=== PATIENT | female | born 1960 | race Caucasian/White ===

== ENCOUNTER 2017-02-02 14:25 | Outpatient (CLI) | payer BC ==
--- NOTE | 2017-02-02 17:57 | Ultrasound Report ---
ULTRASOUND POSTERIOR CHEST: 02/02/2017 CLINICAL INDICATION: Palpable abnormalities. TECHNIQUE: Real-time scanning was performed with clearance representative static images obtained. Ultrasound of the region of palpable abnormalities identified by the patient was performed. There ar e two sebaceous cysts present, the more medial measuring 1.6 x 1.3 x 0.9, and the more lateral measur ing 1.4 x 1.4 x 1.3 cm. No sonographically suspicious findings are identified. IMPRESSION: TWO SMALL SEBACEOUS CYSTS IN THE REGION OF PALPABLE ABNORMALITY IDENTIFIED BY THE JEREMIAS Pepper JOB #: [id number] EXT JOB #:[id number]
== END 2017-02-02 14:26 | disposition home or self-care (01) ==
LOC: DI 14:25
PROVIDERS: ATTEND Physician Assistant Medical
DX: L72.3 Sebaceous cyst (principal)
CPT/HCPCS: 76604

== ENCOUNTER 2017-02-08 16:50 | Outpatient (CLI) | payer BC | END 2017-02-08 16:51 | disposition home or self-care (01) | LOC: LAB.R 16:50 | PROVIDERS: ATTEND Family Medicine | DX: L02.91 Cutaneous abscess, unspecified (principal) | CPT/HCPCS: 87070; 87205 ==

== ENCOUNTER 2017-08-13 08:00 | Outpatient (CLI) | payer BC ==
[2017-08-13 14:09] LABS: BASOPHILS # (AUTO) 0.1 10^3/uL (0.0-0.1); BASOPHILS % (AUTO) 0.9 %; EOSINOPHILS # (AUTO) 0.3 10^3/uL (0.0-0.7); EOSINOPHILS % (AUTO) 2.3 %; HGB - HEMOGLOBIN 15.3 g/dL (12.0-16.0); LYMPHOCYTES # (AUTO) 2.9 10^3/uL (1.5-3.5); LYMPHOCYTES % (AUTO) 24.4 %; MEAN CORPUSCULAR HEMOGLOBIN 29.4 pg (27.0-31.0); MEAN CORPUSCULAR HGB CONC 33.9 g/dL (32.0-36.0); MEAN CORPUSCULAR VOLUME 86.7 fL (81.0-99.0); MEAN PLATELET VOLUME 8.6 fL (7.9-10.8); MONOCYTES # (AUTO) 0.8 10^3/uL (0.0-1.0); MONOCYTES % (AUTO) 6.7 %; NEUTROPHILS # (AUTO) 7.9 10^3/uL (1.5-6.6); NEUTROPHILS % (AUTO) 65.7 %; PLT - PLATELET COUNT 245 10^3/uL (130-450); RED BLOOD COUNT 5.22 10^6/uL (4.20-5.40); RED CELL DISTRIBUTION WIDTH 13.8 % (12.0-15.0)
[2017-08-13 14:11] LABS: ALBUMIN 4.4 g/dL (3.2-5.5); ALBUMIN/GLOBULIN RATIO 1.3 (1.0-2.2); ALKALINE PHOSPHATASE 75 IU/L (42-121); ALT ALANINE AMINOTRANSFERASE 22 IU/L (10-60); AST ASPARTATE AMINOTRANSFERASE 21 IU/L (10-42); BILIRUBIN,TOTAL 0.4 mg/dL (0.2-1.0); BUN - BLOOD UREA NITROGEN 16 mg/dL (6-20); CALCIUM 9.1 mg/dL (8.5-10.3); CARBON DIOXIDE - CO2 24 mmol/L (21-32); CHLORIDE 102 mmol/L (101-111); CHOL/HDL RATIO 5.2 (<4.4); CHOLESTEROL 186 mg/dL; CREATININE 0.7 mg/dL (0.4-1.0); GFR - MDRD 87 (>89); GLUCOSE 100 mg/dL (70-100); HDL CHOLESTEROL 36 mg/dL; LDL CHOLESTEROL,CALCULATED 120 mg/dL; LDL/HDL RATIO 3.3 (<4.4); SODIUM 135 mmol/L (135-145); TOTAL PROTEIN 7.7 g/dL (6.7-8.2); VLDL CHOLESTEROL 30 mg/dL
[2017-08-13 14:36] LABS: HB2 TOTAL 16.8 g/dL; HEMOGLOBIN A1C 0.81 g/dL; HEMOGLOBIN A1C % 6.6 % (4.6-6.2)
== END 2017-08-13 08:01 | disposition home or self-care (01) ==
LOC: LAB.WCP 08:00
PROVIDERS: ATTEND Family Medicine
DX: E78.5 Hyperlipidemia, unspecified (principal); E03.9 Hypothyroidism, unspecified; R73.9 Hyperglycemia, unspecified; Z79.899 Other long term (current) drug therapy
CPT/HCPCS: 36415; 80053; 80061; 83036; 83721; 84443; 85025

== ENCOUNTER 2017-10-12 06:09 | Day surgery (SDC) | payer BC ==
[2017-10-12] MEDS ORDERED: LACTATED RINGERS 1,000 ML IV ONE (06:50)
[2017-10-12] MEDS ORDERED: fentaNYL 250 MCG/5 ML VIAL IVP ONE (07:38)
[2017-10-12] MEDS ORDERED: MIDAZOLAM 2 MG/2 ML VIAL IVP ONE (07:38)
[2017-10-12 09:01] VITALS: BP 105/62
== END 2017-10-12 06:10 | disposition home or self-care (01) ==
LOC: SDS 06:09
PROVIDERS: ATTEND Surgery
PROC: 0DBH8ZX Excision of Cecum, Via Natural or Artificial Opening Endoscopic, Diagnostic (ICD-10-PCS; principal; 2017-10-12 07:30)
DX: Z12.11 Encounter for screening for malignant neoplasm of colon (principal); K57.30 Diverticulosis of large intestine without perforation or abscess without bleeding; K64.8 Other hemorrhoids; K63.5 Polyp of colon; E11.9 Type 2 diabetes mellitus without complications; I10 Essential (primary) hypertension; J44.9 Chronic obstructive pulmonary disease, unspecified; F17.210 Nicotine dependence, cigarettes, uncomplicated; Z79.82 Long term (current) use of aspirin; Z79.84 Long term (current) use of oral hypoglycemic drugs
CPT/HCPCS: 45380; J7120; 88305

== ENCOUNTER 2017-11-29 10:10 | Outpatient (CLI) | payer BC ==
[2017-11-29 12:24] LABS: BASOPHILS # (AUTO) 0.1 10^3/uL (0.0-0.1); BASOPHILS % (AUTO) 0.4 %; EOSINOPHILS # (AUTO) 0.2 10^3/uL (0.0-0.7); EOSINOPHILS % (AUTO) 1.9 %; HGB - HEMOGLOBIN 14.9 g/dL (12.0-16.0); LYMPHOCYTES # (AUTO) 2.9 10^3/uL (1.5-3.5); LYMPHOCYTES % (AUTO) 23.2 %; MEAN CORPUSCULAR HEMOGLOBIN 29.8 pg (27.0-31.0); MEAN CORPUSCULAR HGB CONC 33.6 g/dL (32.0-36.0); MEAN CORPUSCULAR VOLUME 88.8 fL (81.0-99.0); MEAN PLATELET VOLUME 8.7 fL (7.9-10.8); MONOCYTES # (AUTO) 0.7 10^3/uL (0.0-1.0); MONOCYTES % (AUTO) 5.8 %; NEUTROPHILS # (AUTO) 8.5 10^3/uL (1.5-6.6); NEUTROPHILS % (AUTO) 68.7 %; PLT - PLATELET COUNT 269 10^3/uL (130-450); RED BLOOD COUNT 5.01 10^6/uL (4.20-5.40); WHITE BLOOD COUNT 12.4 x10^3/uL (4.8-10.8)
[2017-11-29 12:36] LABS: ALBUMIN/GLOBULIN RATIO 1.1 (1.0-2.2); ALKALINE PHOSPHATASE 69 IU/L (42-121); ALT ALANINE AMINOTRANSFERASE 21 IU/L (10-60); AST ASPARTATE AMINOTRANSFERASE 21 IU/L (10-42); BILIRUBIN,TOTAL 0.5 mg/dL (0.2-1.0); BUN - BLOOD UREA NITROGEN 18 mg/dL (6-20); CALCIUM 9.3 mg/dL (8.5-10.3); CARBON DIOXIDE - CO2 23 mmol/L (21-32); CHLORIDE 103 mmol/L (101-111); CHOL/HDL RATIO 4.2 (<4.4); CHOLESTEROL 193 mg/dL; CREATININE 0.8 mg/dL (0.4-1.0); GFR - MDRD 74 (>89); GLUCOSE 90 mg/dL (70-100); HDL CHOLESTEROL 46 mg/dL; LDL CHOLESTEROL,CALCULATED 105 mg/dL; LDL/HDL RATIO 2.3 (<4.4); SODIUM 137 mmol/L (135-145); TOTAL PROTEIN 7.7 g/dL (6.7-8.2); VLDL CHOLESTEROL 42 mg/dL
[2017-11-29 13:05] LABS: HB2 TOTAL 16.9 g/dL; HEMOGLOBIN A1C 0.64 g/dL; HEMOGLOBIN A1C % 5.6 % (4.6-6.2)
== END 2017-11-29 10:11 | disposition home or self-care (01) ==
LOC: LAB.WCP 10:10
PROVIDERS: ATTEND Family Medicine
DX: E11.9 Type 2 diabetes mellitus without complications (principal); E78.5 Hyperlipidemia, unspecified; R89.9 Unspecified abnormal finding in specimens from other organs, systems and tissues
CPT/HCPCS: 36415; 80053; 80061; 82043; 83036; 83721; 85025

== ENCOUNTER 2018-08-08 10:58 | Outpatient (CLI) | payer BC, OTHER ==
[2018-08-08 19:09] LABS: BASOPHILS # (AUTO) 0.1 10^3/uL (0.0-0.1); BASOPHILS % (AUTO) 0.7 %; EOSINOPHILS # (AUTO) 0.2 10^3/uL (0.0-0.7); EOSINOPHILS % (AUTO) 2.4 %; LYMPHOCYTES # (AUTO) 2.2 10^3/uL (1.5-3.5); LYMPHOCYTES % (AUTO) 23.4 %; MEAN CORPUSCULAR HEMOGLOBIN 29.5 pg (27.0-31.0); MEAN CORPUSCULAR VOLUME 89.5 fL (81.0-99.0); MEAN PLATELET VOLUME 8.4 fL (7.9-10.8); MONOCYTES # (AUTO) 0.7 10^3/uL (0.0-1.0); MONOCYTES % (AUTO) 6.9 %; NEUTROPHILS # (AUTO) 6.3 10^3/uL (1.5-6.6); NEUTROPHILS % (AUTO) 66.6 %; PLT - PLATELET COUNT 268 10^3/uL (130-450); RED BLOOD COUNT 5.08 10^6/uL (4.20-5.40); RED CELL DISTRIBUTION WIDTH 14.6 % (12.0-15.0); WHITE BLOOD COUNT 9.4 x10^3/uL (4.8-10.8)
[2018-08-08 19:40] LABS: HB2 TOTAL 16.6 g/dL; HEMOGLOBIN A1C 0.73 g/dL; HEMOGLOBIN A1C % 6.2 % (4.6-6.2)
[2018-08-08 19:44] LABS: ALBUMIN 4.2 g/dL (3.2-5.5); ALBUMIN/GLOBULIN RATIO 1.3 (1.0-2.2); ALKALINE PHOSPHATASE 73 IU/L (42-121); ALT ALANINE AMINOTRANSFERASE 19 IU/L (10-60); AST ASPARTATE AMINOTRANSFERASE 23 IU/L (10-42); BILIRUBIN,TOTAL 0.5 mg/dL (0.2-1.0); BUN - BLOOD UREA NITROGEN 15 mg/dL (6-20); CALCIUM 9.6 mg/dL (8.5-10.3); CARBON DIOXIDE - CO2 26 mmol/L (21-32); CHLORIDE 104 mmol/L (101-111); CHOL/HDL RATIO 4.4 (<4.4); CHOLESTEROL 209 mg/dL; CREATININE 0.8 mg/dL (0.4-1.0); GFR - MDRD 74 (>89); GLUCOSE 98 mg/dL (70-100); HDL CHOLESTEROL 47 mg/dL; LDL CHOLESTEROL,CALCULATED 130 mg/dL; LDL/HDL RATIO 2.8 (<4.4); SODIUM 138 mmol/L (135-145); TOTAL PROTEIN 7.5 g/dL (6.7-8.2); VLDL CHOLESTEROL 32 mg/dL
== END 2018-08-08 10:59 | disposition home or self-care (01) ==
LOC: LAB.WCP 10:58
PROVIDERS: ATTEND Family Medicine
DX: I10 Essential (primary) hypertension (principal); E11.9 Type 2 diabetes mellitus without complications; E78.5 Hyperlipidemia, unspecified; E03.9 Hypothyroidism, unspecified
CPT/HCPCS: 36415; 80053; 80061; 83036; 83721; 84443; 85025

== ENCOUNTER 2019-01-17 08:29 | Outpatient (CLI) | payer OTHER ==
[2019-01-17 14:08] LABS: HEMOGLOBIN A1C 0.63 g/dL; HEMOGLOBIN A1C % 5.8 % (4.6-6.2)
[2019-01-17 14:16] LABS: ALBUMIN 4.1 g/dL (3.2-5.5); ALKALINE PHOSPHATASE 74 IU/L (42-121); ALT ALANINE AMINOTRANSFERASE 20 IU/L (10-60); AST ASPARTATE AMINOTRANSFERASE 21 IU/L (10-42); BILIRUBIN,TOTAL 0.4 mg/dL (0.2-1.0); BUN - BLOOD UREA NITROGEN 17 mg/dL (6-20); CARBON DIOXIDE - CO2 24 mmol/L (21-32); CHLORIDE 105 mmol/L (101-111); CREATININE 0.8 mg/dL (0.4-1.0); GFR - MDRD 74 (>89); GLUCOSE 87 mg/dL (70-100); SODIUM 137 mmol/L (135-145); TOTAL PROTEIN 7.3 g/dL (6.7-8.2)
[2019-01-17 14:17] LABS: ALBUMIN/GLOBULIN RATIO 1.3 (1.0-2.2); CHOL/HDL RATIO 5.1 (<4.4); CHOLESTEROL 215 mg/dL; HDL CHOLESTEROL 42 mg/dL; LDL CHOLESTEROL,CALCULATED 133 mg/dL; LDL/HDL RATIO 3.2 (<4.4); VLDL CHOLESTEROL 40 mg/dL
== END 2019-01-17 23:59 ==
LOC: LAB.WCP 08:29
PROVIDERS: ATTEND Family Medicine
DX: I10 Essential (primary) hypertension (principal); E78.5 Hyperlipidemia, unspecified; E11.9 Type 2 diabetes mellitus without complications
CPT/HCPCS: 36415; 80053; 80061; 83036; 83721

== ENCOUNTER 2019-01-31 10:30 | Outpatient (CLI) | payer OTHER | END 2019-01-31 23:59 | disposition home or self-care (01) | LOC: LAB.R 10:30 | PROVIDERS: ATTEND Physician Assistant | DX: L02.31 Cutaneous abscess of buttock (principal) | CPT/HCPCS: 87070; 87075; 87076; 87077; 87205 ==

== ENCOUNTER 2019-05-29 08:00 | Outpatient (CLI) | payer OTHER ==
[2019-05-29 13:56] LABS: ALBUMIN/GLOBULIN RATIO 1.4 (1.0-2.2); ALKALINE PHOSPHATASE 69 IU/L (42-121); ALT ALANINE AMINOTRANSFERASE 22 IU/L (10-60); AST ASPARTATE AMINOTRANSFERASE 22 IU/L (10-42); BILIRUBIN,TOTAL 0.6 mg/dL (0.2-1.0); BUN - BLOOD UREA NITROGEN 17 mg/dL (6-20); CARBON DIOXIDE - CO2 25 mmol/L (21-32); CHLORIDE 106 mmol/L (101-111); CHOLESTEROL 185 mg/dL; CREATININE 0.7 mg/dL (0.4-1.0); GFR - MDRD 86 (>89); GLUCOSE 92 mg/dL (70-100); HDL CHOLESTEROL 46 mg/dL; LDL CHOLESTEROL,CALCULATED 106 mg/dL; LDL/HDL RATIO 2.3 (<4.4); SODIUM 140 mmol/L (135-145); TOTAL PROTEIN 6.9 g/dL (6.7-8.2); VLDL CHOLESTEROL 33 mg/dL
[2019-05-29 14:11] LABS: HB2 TOTAL 14.7 g/dL; HEMOGLOBIN A1C 0.67 g/dL; HEMOGLOBIN A1C % 6.3 % (4.6-6.2)
== END 2019-05-29 23:59 | disposition home or self-care (01) ==
LOC: LAB.WCP 08:00
PROVIDERS: ATTEND Physician Assistant Medical
DX: E11.9 Type 2 diabetes mellitus without complications (principal)
CPT/HCPCS: 36415; 80053; 80061; 83036; 83721

== ENCOUNTER 2019-06-16 15:11 | Outpatient (CLI) | payer OTHER ==
--- NOTE | 2019-06-16 16:22 | CT Report ---
Reason: TOBACCO ABUSE Procedure Date: 06/16/2019 Accession Number: [id number] / [id number] Procedure: CT - Low Dose Lung Cancer Screen CPT Code: Final Report FULL RESULT: EXAM CT LUNG SCREEN EXAM DATE: 06/16/2019 03:36 PM. HISTORY: 58-year-old patient with 79-wibd-infe smoking history. Currently smoking: Yes. COMPARISON: ABDOMEN/PELVIS W/O 09/27/2013 8:28 PM CHEST W/O 03/12/2015 3:02 PM. TECHNIQUE: CT examination of the entire thorax without contrast was performed using low-dose technique. Thin section coronal, axial, sagittal and MIP axial images were obtained. In accordance with CT protocol optimization, one or more of the following dose reduction techniques were utilized for this exam: automated exposure control, adjustment of mA and/or KV based on patient size, or use of iterative reconstructive technique. FINDINGS: Nodules: Right upper lobe: 6 mm nodule image 47 series 4. 5 mm nodule image 61. 2 mm nodule image 62. Right middle lobe: 3 mm nodule image 74. Right lower lobe: None. Left upper lobe: 3 mm nodule image 32. Left lower lobe: None. Emphysema: Mild. Pleura: Unremarkable. Aorta: Moderate calcifications. Mediastinum: Unremarkable. Coronary calcifications: Minimal. Other pulmonary findings: Mild bilateral peribronchovascular groundglass, nonspecific. Subsegmental atelectasis versus scarring in lingula. Other extrapulmonary findings: Redemonstration of right adrenal mass, lipid-rich adrenal adenoma by Hounsfield units on prior CT. IMPRESSION: Lung-RADS ASSESSMENT CATEGORY: 4A - suspicious. Probability of malignancy: 5-15%. RECOMMENDATION: 3 month follow-up low-dose chest CT. RADIA
== END 2019-06-16 15:12 | disposition home or self-care (01) ==
LOC: DI 15:11
PROVIDERS: ATTEND Physician Assistant Medical
DX: Z12.2 Encounter for screening for malignant neoplasm of respiratory organs (principal); R91.8 Other nonspecific abnormal finding of lung field; J43.9 Emphysema, unspecified; F17.210 Nicotine dependence, cigarettes, uncomplicated

== ENCOUNTER 2020-08-27 17:25 | Outpatient (CLI) | payer OTHER | END 2020-08-27 23:59 | disposition home or self-care (01) | LOC: LAB.R 17:25 | PROVIDERS: ATTEND Physician Assistant Medical | DX: L72.3 Sebaceous cyst (principal) | CPT/HCPCS: 87070; 87205 ==

== ENCOUNTER 2020-12-02 13:06 | Emergency (ER) | payer OTHER ==
[2020-12-02 13:21] VITALS: BP 150/72
[2020-12-02 13:39] LABS: BASOPHILS # (AUTO) 0.1 10^3/uL (0.0-0.1); BASOPHILS % (AUTO) 0.5 %; EOSINOPHILS # (AUTO) 0.1 10^3/uL (0.0-0.7); EOSINOPHILS % (AUTO) 1.3 %; HCT - HEMATOCRIT 44.3 % (37.0-47.0); HGB - HEMOGLOBIN 15.1 g/dL (12.0-16.0); LYMPHOCYTES # (AUTO) 2.5 10^3/uL (1.5-3.5); LYMPHOCYTES % (AUTO) 22.4 %; MEAN CORPUSCULAR HGB CONC 34.1 g/dL (32.0-36.0); MEAN CORPUSCULAR VOLUME 88.1 fL (81.0-99.0); MEAN PLATELET VOLUME 9.7 fL (7.9-10.8); MONOCYTES # (AUTO) 0.7 10^3/uL (0.0-1.0); MONOCYTES % (AUTO) 6.3 %; NEUTROPHILS # (AUTO) 7.7 10^3/uL (1.5-6.6); NEUTROPHILS % (AUTO) 69.2 %; PLT - PLATELET COUNT 273 10^3/uL (130-450); RED BLOOD COUNT 5.03 10^6/uL (4.20-5.40); RED CELL DISTRIBUTION WIDTH 13.5 % (12.0-15.0); WHITE BLOOD COUNT 11.1 x10^3/uL (4.8-10.8)
[2020-12-02 13:40] LABS: BILIRUBIN,URINE NEGATIVE (NEGATIVE); GLUCOSE, URINE (UA) NEGATIVE (NEGATIVE); KETONES,URINE (UA) NEGATIVE (NEGATIVE); LEUKOCYTE ESTERASE, URINE NEGATIVE (NEGATIVE); NITRITE,URINE NEGATIVE (NEGATIVE); OCCULT BLOOD,URINE NEGATIVE (NEGATIVE); PH,URINE 5.5 PH (5.0-7.5); PROTEIN,URINE NEGATIVE (NEGATIVE); UROBILINOGEN,URINE 0.2 (NORMAL) E.U./dL (NORMAL)
[2020-12-02 13:53] LABS: CLARITY,URINE CLEAR (CLEAR)
[2020-12-02 14:06] LABS: ALBUMIN 4.1 g/dL (3.2-5.5); ALBUMIN/GLOBULIN RATIO 1.2 (1.0-2.2); BILIRUBIN,TOTAL 0.7 mg/dL (0.2-1.0); CALCIUM 9.1 mg/dL (8.5-10.3); CREATININE 0.7 mg/dL (0.4-1.0); POTASSIUM 3.6 mmol/L (3.5-5.0); TOTAL PROTEIN 7.4 g/dL (6.7-8.2)
--- NOTE | 2020-12-02 15:50 | ED Physician Documentation ---
PD HPI ABD PAIN - Stated complaint Stated Complaint: ABD PX - Chief complaint Chief Complaint: Abd Pain - History obtained from History obtained from: Patient - Additional information Additional information: 60-year-old woman with history of remote appendectomy and hysterectomy, both laparoscopic presents with about 3 days of intermittent central and lower abdominal pain. It was initially thought to be due to constipation and she took some laxatives and cleaned herself out but that did not help. There is no associated nausea or fevers. She has had 2 colonoscopies in the past with polyps, she is not sure if she has diverticula. That said review of colonoscopy done in 2018 showed mild diverticulosis in the sigmoid. She is pain-free right now and declined pain medication. 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: Hysterectomy Cardiovascular: Other HEENT: Tonsil/Adenoidectomy - Present Medications Home Medications: Ambulatory Orders Medication Instructions Recorded Confirmed Aspirin [Aspir 81] 81 mg PO DAILY 04/01/15 10/12/17 Levothyroxine [Synthroid] 100 mcg PO QDAC 04/01/15 10/12/17 Simvastatin [Zocor] 10 mg PO QPM 04/01/15 10/12/17 lisinopriL [Lisinopril] 2.5 mg PO DAILY 10/11/17 10/12/17 Fluticasone [Flonase] 1 sprays LIMA BID 10/12/17 10/12/17 Metformin HCl [Metformin HCl ER] 500 mg PO BID 10/12/17 10/12/17 Loratadine [Allergy] 1 tab ORAL DAILY 01/18/18 01/18/18 - Allergies Allergies/Adverse Reactions: Allergies Allergy/AdvReac Type Severity Reaction Status Date / Time No Known Drug Allergies Allergy Verified 12/02/20 13:16 - Social History Smoking Status: Current every day smoker PD ED PE NORMAL - Vitals Vital signs reviewed: Yes - General General: Alert and oriented X 3, No acute distress - HEENT HEENT: PERRL - Cardiac Cardiac: RRR, No murmur - Abdomen Abdomen: Soft, Other (Mild tenderness in the lower abdomen, both sides. No surgical signs.) - Neuro Neuro: Alert and oriented X 3, Normal speech Results - Vitals Vitals: Vital Signs - 24 hr 12/02/20 13:16 Temperature 36.5 C Heart Rate 68 Respiratory 16 Rate Blood Pressure 150/72 H O2 Saturation 97 Oxygen O2 Source Room air - Labs Labs: Laboratory Tests 12/02/20 12/02/20 12/02/20 13:25 13:34 13:34 WBC 11.1 H RBC 5.03 Hgb 15.1 Hct 44.3 MCV 88.1 MCH 30.0 MCHC 34.1 RDW 13.5 Plt Count 273 MPV 9.7 Neut # (Auto) 7.7 H Lymph # (Auto) 2.5 Terry # (Auto) 0.7 Eos # (Auto) 0.1 Baso # (Auto) 0.1 Absolute Nucleated RBC 0.00 Nucleated RBC % 0.0 Sodium 141 Potassium 3.6 Chloride 106 Carbon Dioxide 24 Anion Gap 11.0 BUN 11 Creatinine 0.7 Estimated GFR (MDRD) 86 L Glucose 89 Calcium 9.1 Total Bilirubin 0.7 AST 18 ALT 21 Alkaline Phosphatase 70 Total Protein 7.4 Albumin 4.1 Globulin 3.3 Albumin/Globulin Ratio 1.2 Lipase 44 Urine Color YELLOW Urine Clarity CLEAR Urine pH 5.[address] 1.025 Urine Protein NEGATIVE Urine Glucose (UA) NEGATIVE Urine Ketones NEGATIVE Urine Occult Blood NEGATIVE Urine Nitrite NEGATIVE Urine Bilirubin NEGATIVE Urine Urobilinogen 0.2 (NORMAL) Ur Leukocyte Esterase NEGATIVE Ur Microscopic Review NOT INDICATED Urine Culture Comments NOT INDICATED PD MEDICAL DECISION MAKING - ED course ED course: 60-year-old woman with lower and diffuse abdominal pain. CT negative. Could be residual cramps from the laxatives she took or a radiographically occult case of diverticulitis. Either way liquid diet for a day was advised in close return precautions. Diagnosis 1. Abdominal pain Departure - Departure Disposition: 01 Home, Self Care Condition: Good Record reviewed to determine appropriate education?: Yes Instructions: ED Abdominal Pain Unkn Cause, ED Diet Clear Liquid Comments: 60-year-old woman with lower and diffuse abdominal pain. CT negative. Could be residual cramps from the laxatives she took or a radiographically occult case of diverticulitis. Return if worsening or new symptoms occur, or if not better in the next 24 hours.
[2020-12-02] MEDS ORDERED: IOVERSOL 320 100 ML VIAL IVP ONE ×2 (15:54→16:49)
--- NOTE | 2020-12-02 16:30 | CT Report ---
PROCEDURE: Abdomen/Pelvis W INDICATIONS: IV only, abd pain CONTRAST: IV CONTRAST: Optiray 320 ml: 100 PO CONTRAST: *NO PO CONTRAST TECHNIQUE: After the administration of contrast, 5 mm thick sections acquired from the diaphragms to the sym physis. 5 mm thick coronal and sagittal reformats were acquired. For radiation dose reduction, the following was used: automated exposure control, adjustment of mA and/or kV according to patient size . COMPARISON: None. FINDINGS: Image quality: Excellent. ABDOMEN: Lung bases: Lung bases are clear. Heart size is normal. Solid organs: Liver and spleen are normal in size and enhancement. Gallbladder appears normal Bili carli system is non-dilated. Pancreas enhances normally. No new adrenal nodules and a previously pres ent low density right adrenal nodule measuring up to 2.7 cm has not changed significantly from 2014, measuring 2.8 cm.. Kidneys demonstrate normal size and enhancement, without hydronephrosis. Peritoneum and bowel: Bowel loops demonstrate normal wall thickness and caliber. No free fluid or a ir. Nodes and vessels: No retroperitoneal or mesenteric adenopathy by size criteria. Aorta and inferior vena cava are normal in size. Miscellaneous: No ventral hernias. PELVIS: Genitourinary: Bladder wall thickness is normal. Miscellaneous: No inguinal hernias or adenopathy. Bones: No suspicious bony lesions. No vertebral body compression fractures. IMPRESSION: No acute disease. No sign of diverticulitis. A previously present right adrenal nodule s een in 2014 had measured up to 2.7 cm in maximal dimension and it now measures only 2.8 cm in maximal dimension on the current study. No specific follow-up is recommended. A source of abdominal/pelvic p ain is not seen. Reviewed by: Abdiel Villalta MD on 12/02/2020 4:29 PM PDT Approved by: Abdiel Villalta MD on 12/02/2020 4:29 PM PDT Station ID: [id number]
== END 2020-12-02 16:48 | disposition home or self-care (01) ==
LOC: ED 13:06
DX: R10.30 Lower abdominal pain, unspecified (principal); F17.200 Nicotine dependence, unspecified, uncomplicated
CPT/HCPCS: 36415; 74177; 80053; 81003; 83690; 85025; 99284; Q9967; 81001; 87086

== ENCOUNTER 2020-12-24 08:00 | Outpatient (CLI) | payer OTHER ==
[2020-12-24 11:43] LABS: BASOPHILS # (AUTO) 0.1 10^3/uL (0.0-0.1); BASOPHILS % (AUTO) 0.5 %; EOSINOPHILS # (AUTO) 0.3 10^3/uL (0.0-0.7); EOSINOPHILS % (AUTO) 2.5 %; HCT - HEMATOCRIT 47.6 % (37.0-47.0); HGB - HEMOGLOBIN 15.5 g/dL (12.0-16.0); LYMPHOCYTES # (AUTO) 2.2 10^3/uL (1.5-3.5); LYMPHOCYTES % (AUTO) 22.3 %; MEAN CORPUSCULAR HEMOGLOBIN 29.2 pg (27.0-31.0); MEAN CORPUSCULAR HGB CONC 32.6 g/dL (32.0-36.0); MEAN CORPUSCULAR VOLUME 89.6 fL (81.0-99.0); MEAN PLATELET VOLUME 10.3 fL (7.9-10.8); MONOCYTES # (AUTO) 0.6 10^3/uL (0.0-1.0); NEUTROPHILS # (AUTO) 6.8 10^3/uL (1.5-6.6); NEUTROPHILS % (AUTO) 68.3 %; PLT - PLATELET COUNT 242 10^3/uL (130-450); RED BLOOD COUNT 5.31 10^6/uL (4.20-5.40); RED CELL DISTRIBUTION WIDTH 14.1 % (12.0-15.0)
[2020-12-24 11:46] LABS: CREATININE,URINE 101.6 mg/dL; MICROALBUM/CREATININE RATIO,UR 14.8 ug/mg (<30.0); MICROALBUMIN,URINE 1.5 mg/dL (0-300.0)
[2020-12-24 11:57] LABS: ESTIMATED AVERAGE GLUCOSE 126 mg/dL (70-100)
[2020-12-24 11:58] LABS: ALBUMIN 4.5 g/dL (3.2-5.5); ALBUMIN/GLOBULIN RATIO 1.6 (1.0-2.2); ALKALINE PHOSPHATASE 81 IU/L (42-121); ALT ALANINE AMINOTRANSFERASE 23 IU/L (10-60); AST ASPARTATE AMINOTRANSFERASE 19 IU/L (10-42); BILIRUBIN,TOTAL 0.7 mg/dL (0.2-1.0); BUN - BLOOD UREA NITROGEN 14 mg/dL (6-20); CHOLESTEROL 182 mg/dL; CREATININE 0.7 mg/dL (0.4-1.0); GFR - MDRD 86 (>89); HDL CHOLESTEROL 45 mg/dL; LDL CHOLESTEROL,CALCULATED 105 mg/dL; LDL/HDL RATIO 2.3 (<4.4); TOTAL PROTEIN 7.3 g/dL (6.7-8.2); TRIGLYCERIDES 160 mg/dL; VLDL CHOLESTEROL 32 mg/dL
[2020-12-24 12:05] LABS: THYROID STIMULATING HORMONE 2.01 uIU/mL (0.34-5.60)
[2020-12-24 12:14] LABS: CALCIUM 9.6 mg/dL (8.5-10.3); CARBON DIOXIDE - CO2 26 mmol/L (21-32); CHLORIDE 108 mmol/L (101-111); GLUCOSE 92 mg/dL (70-100); POTASSIUM 4.2 mmol/L (3.5-5.0); SODIUM 143 mmol/L (135-145)
== END 2020-12-24 23:59 | disposition home or self-care (01) ==
LOC: LAB.WCP 08:00
PROVIDERS: ATTEND Physician Assistant Medical
DX: I10 Essential (primary) hypertension (principal); E78.5 Hyperlipidemia, unspecified; E11.9 Type 2 diabetes mellitus without complications; E03.9 Hypothyroidism, unspecified
CPT/HCPCS: 36415; 80053; 80061; 82043; 82570; 83036; 83721; 84443; 85025

== ENCOUNTER 2021-04-14 09:10 | Outpatient (CLI) | payer OTHER ==
[2021-04-14 12:35] LABS: ALBUMIN 4.5 g/dL (3.2-5.5); ALBUMIN/GLOBULIN RATIO 1.5 (1.0-2.2); ALKALINE PHOSPHATASE 71 IU/L (42-121); ALT ALANINE AMINOTRANSFERASE 41 IU/L (10-60); AST ASPARTATE AMINOTRANSFERASE 30 IU/L (10-42); BILIRUBIN,TOTAL 0.5 mg/dL (0.2-1.0); BUN - BLOOD UREA NITROGEN 19 mg/dL (6-20); CALCIUM 9.7 mg/dL (8.5-10.3); CARBON DIOXIDE - CO2 26 mmol/L (21-32); CHLORIDE 104 mmol/L (101-111); CHOLESTEROL 140 mg/dL; ESTIMATED AVERAGE GLUCOSE 126 mg/dL (70-100); GFR - MDRD 57 (>89); GLUCOSE 101 mg/dL (70-100); HDL CHOLESTEROL 47 mg/dL; LDL CHOLESTEROL,CALCULATED 65 mg/dL; LDL/HDL RATIO 1.4 (<4.4); POTASSIUM 4.4 mmol/L (3.5-5.0); SODIUM 141 mmol/L (135-145); TOTAL PROTEIN 7.6 g/dL (6.7-8.2); TRIGLYCERIDES 140 mg/dL; VLDL CHOLESTEROL 28 mg/dL
== END 2021-04-14 23:59 | disposition home or self-care (01) ==
LOC: LAB.WCP 09:10
PROVIDERS: ATTEND Physician Assistant Medical
DX: E11.9 Type 2 diabetes mellitus without complications (principal)
CPT/HCPCS: 36415; 80053; 80061; 83036; 83721

== ENCOUNTER 2021-05-19 08:47 | Outpatient (CLI) | payer OTHER ==
--- NOTE | 2021-05-19 10:04 | CT Report ---
PROCEDURE: Low Dose Lung Cancer Screen INDICATIONS: LUNG MASS TECHNIQUE: Noncontrast low-dose images were acquired from the pulmonary apices to the posterior costophrenic ang les. Multiplanar MIP reformats were then acquired. For radiation dose reduction, the following was used: automated exposure control, adjustment of mA and/or kV according to patient size. COMPARISON: CT lung cancer screening 06/16/2019. FINDINGS: Image quality: Excellent. Lungs and pleura: A few small pulmonary nodules. For example: -Right upper lobe 0.3 cm, (4/86). -Right lower lobe 0.4 cm, (4/124). No new or enlarging pleura nodules. Mild emphysematous change. No acute airspace opacity. No pleural effusion. No pneumothorax. Mediastinum: Heart size is normal. No pericardial effusion. No mediastinal adenopathy by size crit eria. Thoracic aorta and central pulmonary arteries are normal in size. Esophagus is normal in amanda whit. No hiatal hernia. Bones and chest wall: No suspicious bony lesions. No vertebral body compression fractures. No axil mike or supraclavicular adenopathy by size criteria. The thyroid is normal in size and there are no incidental findings. Abdomen: Visualized upper abdomen solid organs and bowel loops appear normal in the absence of contr ast. Right upper abdominal wall subcutaneous nodule measuring 0.7 cm, previously 0.5 cm. This most li karlos represents a sebaceous cyst. IMPRESSION: A few small stable pulmonary nodules. Lung-RADS 2. Recommend follow-up lung cancer screening Chest CT in 12 months. Reviewed by: Eliel Llanos MD on 05/19/2021 10:03 AM [facility] Approved by: Eliel Llanos MD on 05/19/2021 10:03 AM [facility] Station ID: [id number]
== END 2021-05-19 08:48 | disposition home or self-care (01) ==
LOC: DI 08:47
PROVIDERS: ATTEND Physician Assistant Medical
DX: Z12.2 Encounter for screening for malignant neoplasm of respiratory organs (principal); R91.8 Other nonspecific abnormal finding of lung field; J43.9 Emphysema, unspecified; F17.210 Nicotine dependence, cigarettes, uncomplicated

== ENCOUNTER 2021-06-16 15:00 | Outpatient (CLI) | payer OTHER ==
--- NOTE | 2021-06-17 08:21 | Mammography Report ---
BILATERAL DIGITAL SCREENING MAMMOGRAM 3D/2D: 06/16/2021 CLINICAL: Routine screening. Family history of breast cancer. Comparison is made to exams dated: 05/14/2016 mammogram, 01/25/2015 mammogram, 07/20/2013 mammogram, a nd 04/20/2012 mammogram - [facility]. There are scattered fibroglandular elements in both breasts. No significant masses, calcifications, or other findings are seen in either breast. There has been no significant interval change. IMPRESSION: NEGATIVE There is no mammographic evidence of malignancy. A 1 year screening mammogram is recommended. This exam was interpreted at Station ID: [id number]. NOTE: For mammograms, a report in lay terms will be sent to the patient. Approximately 15% of breast malignancies will not be visualized mammographically. In the management of a palpable breast mass, a negative mammogram must not discourage biopsy of a clinically suspicious lesion. Electronically Signed By: Benjy Mascorro M.D., jr/justyn:06/16/2021 16:36:28 ACR BI-RADS Category 1: Negative 3341F PARENCHYMAL PATTERN: (A) - The breast(s) demonstrate(s) scattered fibroglandular densities. BI-RADS CATEGORY: (1) - 1 RECOMMENDATION: (ANNUAL) - Recommend routine annual screening mammography. [id number] 1 year screening LATERALITY: (B)
== END 2021-06-16 15:01 | disposition home or self-care (01) ==
LOC: DI.S 15:00
DX: Z12.31 Encounter for screening mammogram for malignant neoplasm of breast (principal); Z80.3 Family history of malignant neoplasm of breast

== ENCOUNTER 2021-10-20 09:36 | Outpatient (CLI) | payer OTHER ==
[2021-10-20 12:25] LABS: CALCIUM 9.4 mg/dL (8.5-10.3); CREATININE 0.9 mg/dL (0.4-1.0); POTASSIUM 4.3 mmol/L (3.5-5.0)
[2021-10-20 12:43] LABS: THYROID STIMULATING HORMONE 0.21 uIU/mL (0.34-5.60)
[2021-10-20 13:38] LABS: FREE T4 (FREE THYROXINE) 1.29 ng/dL (0.58-1.64)
[2021-10-20 14:03] LABS: ESTIMATED AVERAGE GLUCOSE 128 mg/dL (70-100); HEMOGLOBIN A1c% 6.1 % (4.27-6.07)
== END 2021-10-20 09:37 | disposition home or self-care (01) ==
LOC: LAB.N 09:36
PROVIDERS: ATTEND Physician Assistant Medical
DX: E11.9 Type 2 diabetes mellitus without complications (principal); E03.9 Hypothyroidism, unspecified
CPT/HCPCS: 36415; 80048; 83036; 84439; 84443

== ENCOUNTER 2022-04-14 17:11 | Outpatient (CLI) | payer OTHER | END 2022-04-14 17:12 | disposition EMS.NT | LOC: EMS 17:11 | DX: S69.82XA Other specified injuries of left wrist, hand and finger(s), initial encounter (principal); V40.5XXA Car driver injured in collision with pedestrian or animal in traffic accident, initial encounter; W22.10XA Striking against or struck by unspecified automobile airbag, initial encounter; Y92.413 State road as the place of occurrence of the external cause ==

== ENCOUNTER 2022-09-17 14:32 | Outpatient (CLI) | payer OTHER ==
--- NOTE | 2022-09-17 17:43 | CT Report ---
PROCEDURE: Low Dose Lung Cancer Screen INDICATIONS: TOBACCO ABUSE TECHNIQUE: Noncontrast low-dose axial images were acquired from the pulmonary apices to the posterior costophren ic angles. Multiplanar MIP reformats were then reconstructed. For radiation dose reduction, the follo wing was used: automated exposure control, adjustment of mA and/or kV according to patient size. COMPARISON: 05/19/2021. FINDINGS: Image quality: Excellent. Prior cancer history: No. Lungs and pleura: No pleural effusions. No pneumothorax. 4 mm pulmonary nodule, right lower lobe, im age 131/4, and previous image 124/4. Stable 3 mm right upper lobe pulmonary nodule, current image 98 and previous image 86. No new or increasing pulmonary nodules. Mediastinum: Heart size is normal. No pericardial effusions. No mediastinal adenopathy by size criter ia. No large vessel abnormality. Chest wall and lower neck: Thyroid is unremarkable. No axillary or supraclavicular adenopathy by size . Bones: No aggressive osseous abnormality. Upper Abdomen: Unremarkable. IMPRESSION: Lung RAD: 1 - Negative. Recommendation: Continue annual screening in 12 Months with LDCT Reviewed by: Lauri Patel MD on 09/17/2022 5:41 PM PDT Approved by: Lauri Patel MD on 09/17/2022 5:41 PM PDT Station ID: [id number]
== END 2022-09-17 14:33 | disposition home or self-care (01) ==
LOC: DI 14:32
PROVIDERS: ATTEND Physician Assistant Medical
DX: R91.1 Solitary pulmonary nodule (principal); F17.200 Nicotine dependence, unspecified, uncomplicated

== ENCOUNTER 2022-09-17 14:35 | Outpatient (CLI) | payer OTHER ==
--- NOTE | 2022-09-18 10:35 | Mammography Report ---
BILATERAL DIGITAL SCREENING MAMMOGRAM 3D/2D: 09/17/2022 CLINICAL: Routine screening. Comparison is made to exams dated: 06/16/2021 mammogram, 05/14/2016 mammogram, 01/25/2015 mammogram, a nd 07/20/2013 mammogram - [facility]. There are scattered areas of fibroglandular density in both breasts (category b / 25%-50% glandular t issue). No significant masses, calcifications, or other findings are seen in either breast. There has been no significant interval change. IMPRESSION: NEGATIVE There is no mammographic evidence of malignancy. A 1 year screening mammogram is recommended. Based on Tyrer-Cuzick model (a risk assessment model), the patient's lifetime risk is 22.7% and her 1 0 year risk is 9.9%. If a patient has an elevated risk, a more comprehensive evaluation should be con sidered and/or a referral to a genetic counselor. The [place] [employer], [place] [employer], and NCCN Guidelines advise the consideration of Breast MRI as an adjunct to screening mammog glenis in patients whose "Lifetime risk to develop breast cancer" is 20% or higher. This exam was interpreted at Station ID: [id number]. NOTE: For mammograms, a report in lay terms will be sent to the patient. Approximately 15% of breast malignancies will not be visualized mammographically. In the management of a palpable breast mass, a negative mammogram must not discourage biopsy of a clinically suspicious lesion. Electronically Signed By: Anita fletcher/justyn:09/17/2022 17:35:43 letter sent: No_Letter ACR BI-RADS Category 1: Negative 3341F PARENCHYMAL PATTERN: (A) - The breast(s) demonstrate(s) scattered fibroglandular densities. BI-RADS CATEGORY: (1) - 1 Mammogram [id number] 1 year screening LATERALITY: (B)
== END 2022-09-17 14:36 | disposition home or self-care (01) ==
LOC: DI 14:35
DX: Z12.31 Encounter for screening mammogram for malignant neoplasm of breast (principal)

== ENCOUNTER 2023-06-30 06:53 | Day surgery (SDC) | payer BC ==
[2023-06-30] MEDS ORDERED: LACTATED RINGERS 1,000 ML IV ONE ×2 (06:57→08:10)
[2023-06-30] MEDS ORDERED: PROPOFOL 500 MG/50 ML 500 MG/50 ML VIAL ONE (06:59)
--- NOTE | 2023-06-30 07:29 | ANESTHESIA ---
Pre-Anesthesia VS, & Labs - Diagnosis HX POLYPS - Procedure COLONOSCOPY Vital Signs: Temp Pulse Resp BP Pulse Ox O2 Flow Rate 36.0 C L 61 19 133/90 H 96 06/30/23 06:57 06/30/23 06:57 06/30/23 06:57 06/30/23 06:57 06/30/23 06:57 Height: 5 ft 3 in Weight (kg): 86.9 kg Body Mass Index: 33.9 BMI Classification: Obese - NPO Last Fluid Intake: 2199 - Is Patient ?: No - Lab Results Current Lab Results: Laboratory Tests 06/30/23 07:14: POC Whole Bld Glucose 113 H Home Medications and Allergies Aspirin [Aspir 81] 81 mg PO DAILY 04/01/15 Levothyroxine [Synthroid] 100 mcg PO QDAC 04/01/15 Simvastatin [Zocor] 10 mg PO QPM 04/01/15 Metformin HCl [Metformin HCl ER] 500 mg PO BID 10/12/17 Allergies/Adverse Reactions: Allergies Allergy/AdvReac Type Severity Reaction Status Date / Time No Known Drug Allergies Allergy Verified 06/29/23 12:21 Anes History & Medical History - Anesthetic History Anesthesia Complications: reports: No previous complications Family history of Anesthesia Complications: Denies Family history of Malignant Hyperthermia: Denies - Medical History Cardiovascular: reports: Hypertension (NO MEDS), High cholesterol Pulmonary: reports: None Gastrointestinal: reports: None Urinary: reports: None Neuro: reports: None Musculoskeletal: reports: None Endocrine/Autoimmune: reports: Type 2 diabetes, HyPOthyroidism Blood Disorders: reports: None Skin: reports: None Smoking Status: Current every day smoker (1 PPD) Psychosocial: reports: Alcohol (SOCIAL) - Surgical History General: reports: Appendectomy, Colonoscopy Eyes Ears Nose Throat (EENT): reports: Tonsil/Adenoidectomy Cardiothoracic: reports: Other Gynecologic: reports: Hysterectomy Orthopedic: reports: Carpal Tunnel surgery Results - EKG Results EKG Comparison: Reviewed EKG Exam General: Alert Dental: WNL Mouth Openin Fingerbreadth Neck Mobility: Normal Mallampati classification: II Thyromental Distance: 4-6 cm Plan Anesthesia Type: Total IV Consent for Procedure(s) Verified and Reviewed: Yes Code Status: Attempt Resuscitation ASA classification: 3-Severe systemic disease Is this case an emergency?: No
[2023-06-30 08:37] VITALS: O2SAT 96
[2023-06-30 09:08] VITALS: BP 117/92
--- NOTE | 2023-06-30 13:41 | ANESTHESIA POST OP EVALUATION ---
Anesthesia Post Eval - Post Anesthesia Eval Vitals: Last Vital Signs Temp 36.1 C L 06/30/23 08:23 Pulse 62 06/30/23 08:23 Resp 14 06/30/23 08:23 BP 117/92 H 06/30/23 08:45 Pulse Ox 96 06/30/23 08:23 O2 Flow Rate CV Function Including HR & BP: Stable Pain Control: Satisfactory Nausea & Vomiting: Negative Mental Status: Baseline Respiratory Status: Airway Patent Hydration Status: Satisfactory Anesthesia Complications: None
== END 2023-06-30 06:54 | disposition home or self-care (01) ==
LOC: SDS 06:53
PROVIDERS: ATTEND Surgery
DX: Z86.010 Personal history of colon polyps (principal); K57.30 Diverticulosis of large intestine without perforation or abscess without bleeding; K64.9 Unspecified hemorrhoids; E11.9 Type 2 diabetes mellitus without complications; I10 Essential (primary) hypertension; F17.200 Nicotine dependence, unspecified, uncomplicated; J43.9 Emphysema, unspecified; J44.9 Chronic obstructive pulmonary disease, unspecified; E66.9 Obesity, unspecified; Z68.34 Body mass index [BMI] 34.0-34.9, adult; Z79.84 Long term (current) use of oral hypoglycemic drugs
CPT/HCPCS: 45378; J7120

== ENCOUNTER 2023-08-26 08:06 | Outpatient (CLI) | payer BC ==
[2023-08-26 11:54] LABS: BASOPHILS % (AUTO) 0.4 %; EOSINOPHILS # (AUTO) 0.2 10^3/uL (0.0-0.7); EOSINOPHILS % (AUTO) 1.8 %; HCT - HEMATOCRIT 47.1 % (37.0-47.0); LYMPHOCYTES # (AUTO) 2.4 10^3/uL (1.5-3.5); LYMPHOCYTES % (AUTO) 22.4 %; MEAN CORPUSCULAR HEMOGLOBIN 28.5 pg (27.0-31.0); MEAN CORPUSCULAR HGB CONC 31.8 g/dL (32.0-36.0); MEAN CORPUSCULAR VOLUME 89.4 fL (81.0-99.0); MEAN PLATELET VOLUME 10.2 fL (7.9-10.8); MONOCYTES # (AUTO) 0.7 10^3/uL (0.0-1.0); MONOCYTES % (AUTO) 6.3 %; NEUTROPHILS # (AUTO) 7.5 10^3/uL (1.5-6.6); NEUTROPHILS % (AUTO) 68.9 %; PLT - PLATELET COUNT 288 10^3/uL (130-450); RED BLOOD COUNT 5.27 10^6/uL (4.20-5.40); RED CELL DISTRIBUTION WIDTH 14.1 % (12.0-15.0); WHITE BLOOD COUNT 10.8 x10^3/uL (4.8-10.8)
[2023-08-26 12:22] LABS: ALBUMIN 4.3 g/dL (3.2-5.5); ALBUMIN/GLOBULIN RATIO 1.6 (1.0-2.2); ALKALINE PHOSPHATASE 78 IU/L (42-121); ALT ALANINE AMINOTRANSFERASE 30 IU/L (10-60); AST ASPARTATE AMINOTRANSFERASE 22 IU/L (10-42); BILIRUBIN,TOTAL 0.4 mg/dL (0.2-1.0); BUN - BLOOD UREA NITROGEN 21 mg/dL (6-20); CALCIUM 9.9 mg/dL (8.5-10.3); CARBON DIOXIDE - CO2 27 mmol/L (21-32); CHLORIDE 106 mmol/L (101-111); CHOL/HDL RATIO 3.2 (<4.4); CHOLESTEROL 124 mg/dL; CREATININE 0.8 mg/dL (0.6-1.3); GFR - MDRD 73 (>89); GLUCOSE 98 mg/dL (74-104); HDL CHOLESTEROL 39 mg/dL; LDL CHOLESTEROL,CALCULATED 53 mg/dL; LDL/HDL RATIO 1.4 (<4.4); POTASSIUM 4.3 mmol/L (3.5-4.5); SODIUM 139 mmol/L (135-145); TRIGLYCERIDES 161 mg/dL (48-352); VLDL CHOLESTEROL 32 mg/dL
[2023-08-26 12:23] LABS: THYROID STIMULATING HORMONE 0.92 uIU/mL (0.34-5.60)
[2023-08-26 12:31] LABS: ESTIMATED AVERAGE GLUCOSE 131 mg/dL (70-100); HEMOGLOBIN A1c% 6.2 % (4.27-6.07)
== END 2023-08-26 08:07 | disposition home or self-care (01) ==
LOC: LAB.N 08:06
PROVIDERS: ATTEND Physician Assistant Medical
DX: Z00.00 Encounter for general adult medical examination without abnormal findings (principal); E78.5 Hyperlipidemia, unspecified; E11.9 Type 2 diabetes mellitus without complications; E03.9 Hypothyroidism, unspecified
CPT/HCPCS: 36415; 80053; 80061; 83036; 83721; 84443; 85025

== ENCOUNTER 2023-10-11 14:57 | Outpatient (CLI) | payer BC ==
--- NOTE | 2023-10-13 12:48 | Ultrasound Report ---
PROCEDURE: Ankle Brachial Index INDICATIONS: PVD TECHNIQUE: Ankle-brachial indices were obtained bilaterally and recorded. COMPARISONS: None. 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 Healing potential: Ankle pressures >55 mm Hg in non-diabetics and >80 mm Hg in diabetics are likely to achieve primary h ealing of ischemic foot ulcers. Toe pressures >30 mm Hg are likely to achieve primary healing of ischemic foot ulcers, toe or transme tatarsal amputations. IMPRESSION: 1.Resting FROILAN is normal on the right at 1.04 and normal on the left at 1.01. Findings may be falsely elevated in the setting of calcified vessels. 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 Reviewed by: Dulce Fair MD on 10/13/2023 12:46 PM PDT Approved by: Dulce Fair MD on 10/13/2023 12:46 PM PDT Station ID: [id number]
== END 2023-10-11 14:58 | disposition home or self-care (01) ==
LOC: DI 14:57
PROVIDERS: ATTEND Physician Assistant Medical
DX: I73.9 Peripheral vascular disease, unspecified (principal)
CPT/HCPCS: 93922

== ENCOUNTER 2023-11-29 15:22 | Outpatient (CLI) | payer BC ==
--- NOTE | 2023-11-29 16:27 | DEXA Report ---
PROCEDURE: Dexa Spine and/or Hip INDICATIONS: POST MENOPAUSAL TECHNIQUE: Dual energy x-ray absorptiometry (DXA) was performed on a Graphicly System. Regions measur ed are the AP Spine, femoral neck, and if needed forearm. COMPARISON: None FINDINGS: Lumbar Spine: Bone Mineral Density: 1.188 g/cm/cm,T score: 0.1. Left Femoral Neck: Bone Mineral Density: 1.053 g/cm/cm, T score: 0.4. Left Hip: Bone Mineral Density: 0.935 g/cm/cm,T score: -0.7. (T score greater or equal to -1.0: NORMAL) (T score from -1.1 to -2.4: OSTEOPENIA) (T score less than or equal to -2.5 to: OSTEOPOROSIS) Impression: By WHO criteria, this patient has normal bone density. Patients with diagnosis of osteoporosis or osteopenia should have regular bone mineral density assess ment. For those eligible for Medicare, routine testing is allowed once every 2 years. Testing frequ ency can be increased for patients who have rapidly progressing disease or for those who are receivin g medical therapy to restore bone mass. Reviewed by: Sherman Calzada MD on 11/29/2023 4:25 PM PDT Approved by: Sherman Calzada MD on 11/29/2023 4:25 PM PDT Station ID: [id number]
== END 2023-11-29 15:23 | disposition home or self-care (01) ==
LOC: DI 15:22
PROVIDERS: ATTEND Physician Assistant Medical
DX: Z78.0 Asymptomatic menopausal state (principal)

== ENCOUNTER 2024-01-19 08:00 | Outpatient (CLI) | payer BC | END 2024-01-19 23:59 | disposition home or self-care (01) | LOC: LAB.N 08:00 | PROVIDERS: ATTEND Physician Assistant Medical | DX: L72.3 Sebaceous cyst (principal) | CPT/HCPCS: 87070; 87205 ==

== ENCOUNTER 2024-01-28 13:53 | Outpatient (CLI) | payer BC ==
--- NOTE | 2024-02-01 08:10 | Mammography Report ---
BILATERAL DIGITAL SCREENING MAMMOGRAM 3D/2D: 01/28/2024 CLINICAL: Routine screening. Family history of breast cancer. Comparison is made to exams dated: 09/17/2022 mammogram, 06/16/2021 mammogram, 05/14/2016 mammogram, a nd 01/25/2015 mammogram - [facility]. There are scattered areas of fibroglandular density in both breasts (category b / 25%-50% glandular t issue). There is a possible oval asymmetry with an indistinct and circumscribed margin in the left breast at 11 o'clock posterior depth. This is more prominent and increased in size. No other significant masses, calcifications, or other findings are seen in either breast. IMPRESSION: INCOMPLETE: NEEDS ADDITIONAL IMAGING EVALUATION The possible oval asymmetry in the left breast is indeterminate. Additional views with possible ultr asound are recommended. Based on Tyrer-Cuzick model (a risk assessment model), the patient's lifetime risk is 22.1% and her 1 0 year risk is 9.9%. If a patient has an elevated risk, a more comprehensive evaluation should be con sidered and/or a referral to a genetic counselor. The [place] [employer], [employer], and NCCN Guidelines advise the consideration of Breast MRI as an adjunct to screening mammog glenis in patients whose "Lifetime risk to develop breast cancer" is 20% or higher. This exam was interpreted at Station ID: [id number]. NOTE: For mammograms, a report in lay terms will be sent to the patient. Approximately 15% of breast malignancies will not be visualized mammographically. In the management of a palpable breast mass, a negative mammogram must not discourage biopsy of a clinically suspicious lesion. Electronically Signed By: Anita fletcher/justyn:01/28/2024 17:23:05 ACR BI-RADS Category 0: Incomplete 3340F PARENCHYMAL PATTERN: (A) - The breast(s) demonstrate(s) scattered fibroglandular densities. BI-RADS CATEGORY: (0) - 0 Mammo and [place] [id number] Immediate follow-up LATERALITY: (B)
== END 2024-01-28 13:54 | disposition home or self-care (01) ==
LOC: DI 13:53
DX: Z12.31 Encounter for screening mammogram for malignant neoplasm of breast (principal); R92.323 Mammographic fibroglandular density, bilateral breasts; R92.8 Other abnormal and inconclusive findings on diagnostic imaging of breast; Z80.3 Family history of malignant neoplasm of breast

== ENCOUNTER 2024-01-28 13:58 | Outpatient (CLI) | payer BC ==
--- NOTE | 2024-01-28 17:21 | CT Report ---
PROCEDURE: Lung Cancer Screen INDICATIONS: TOBACCO ABUSE TECHNIQUE: A CT scan of the chest was performed. Intravenous contrast media was not administered. Images were re corded and evaluated at appropriate window settings. Reformats: axial MIP of the chest, coronal and s agittal. For radiation dose reduction, the following was used: automated exposure control, adjustment of mA and/or kV according to patient size. COMPARISON: 09/17/2022 FINDINGS: Image quality: Excellent. Lungs and pleura: No pleural effusions. No pneumothorax. Several small groundglass nodules within th e right upper lobe measuring 5 mm or less are stable compared to prior. Mediastinum: Heart size is normal. Mild coronary artery calcifications. No pericardial effusion. No l arge vessel abnormality. Atherosclerotic vascular calcifications are present. No mediastinal adenopat hy by size criteria. Chest wall and lower neck: Thyroid is unremarkable. No axillary or supraclavicular adenopathy by size . Bones: No aggressive osseous abnormality. Degenerative changes of the spine Upper Abdomen: Unremarkable. IMPRESSION: Stable appearance of several small subsolid/ground glass nodules within the right upper lobe measurin g 5 mm or less. No new or enlarging pulmonary nodules. Lung RAD: 2 - Benign. Recommendation: Continue annual screening in 12 Months with LDCT Reviewed by: Jamey Cazares MD on 01/28/2024 5:20 PM PDT Approved by: Jamey Cazares MD on 01/28/2024 5:20 PM PDT Station ID: [id number]
== END 2024-01-28 13:59 | disposition home or self-care (01) ==
LOC: DI 13:58
PROVIDERS: ATTEND Physician Assistant Medical
DX: Z12.2 Encounter for screening for malignant neoplasm of respiratory organs (principal); F17.200 Nicotine dependence, unspecified, uncomplicated; R91.8 Other nonspecific abnormal finding of lung field

== ENCOUNTER 2024-02-24 07:38 | Outpatient (CLI) | payer BC ==
--- NOTE | 2024-02-24 10:50 | Ultrasound Report ---
LIMITED ULTRASOUND OF LEFT BREAST: 02/24/2024 CLINICAL: Palpable left breast lump. Comparison is made to exams dated: 02/24/2024 mammogram, 01/28/2024 mammogram, 09/17/2022 mammogram, mammogram, 05/14/2016 mammogram, and 07/20/2013 mammogram - [facility]. Color flow ultrasound of the left breast 10 o'clock region was performed. Yung scale images of the real-time examination were reviewed. There is a benign 0.6 cm x 0.6 cm x 0.5 cm cyst in the left breast at 10 o'clock, 15 cm from the nipp le that is located just deep to the skin. This correlates as palpated and with mammography findings. Color flow imaging demonstrates that there is no vascularity present. IMPRESSION: BENIGN Left breast 0.6 cm cyst at the 10 o'clock position is benign. No mammographic or sonographic evidence of malignancy. A 1 year screening mammogram is recommended. Findings and recommendations were conveyed to the patient during today's evaluation. This exam was interpreted at Station ID: [id number]. Electronically Signed By: Senia Roberts M.D., Ph.D. eb/:02/24/2024 08:49:54 ACR BI-RADS Category 2: Benign BI-RADS CATEGORY: (2) - 2 RECOMMENDATION: (ANNUAL) - Recommend routine annual screening mammography. [id number] 1 year screening LATERALITY: (B)
--- NOTE | 2024-02-24 10:50 | Mammography Report ---
UNILATERAL LEFT DIGITAL DIAGNOSTIC MAMMOGRAM 3D/2D WITH SPOT COMPRESSION: 02/24/2024 CLINICAL: Patient returns today to evaluate a focal asymmetry in the left breast. Comparison is made to exams dated: 01/28/2024 mammogram, 09/17/2022 mammogram, 06/16/2021 mammogram, mammogram, and 01/25/2015 mammogram - . There are scattered areas of fibroglandular density (category b / 25%-50% glandular tissue). There is a 0.9 cm oval mass with a circumscribed margin in the left breast at 10 o'clock posterior de pth. This corresponds to finding seen on recent screening mammogram and present on mammograms dating back to 2014. No other significant masses or calcifications are seen in the breast. IMPRESSION: INCOMPLETE: NEED ADDITIONAL IMAGING EVALUATION The 0.9 cm oval mass in the left breast is indeterminate. An ultrasound is recommended for further e valuation and is scheduled to immediately follow this examination. Based on Tyrer-Cuzick model (a risk assessment model), the patient's lifetime risk is 22.1% and her 1 0 year risk is 9.9%. If a patient has an elevated risk, a more comprehensive evaluation should be con sidered and/or a referral to a genetic counselor. The [place] [employer], [place] [employer], and NCCN Guidelines advise the consideration of Breast MRI as an adjunct to screening mammog glenis in patients whose "Lifetime risk to develop breast cancer" is 20% or higher. This exam was interpreted at Station ID: [id number]. NOTE: For mammograms, a report in lay terms will be sent to the patient. Approximately 15% of breast malignancies will not be visualized mammographically. In the management of a palpable breast mass, a negative mammogram must not discourage biopsy of a clinically suspicious lesion. Electronically Signed By: Senia Roberts M.D., Ph.D. eb/:02/24/2024 08:46:20 ACR BI-RADS Category 0: Incomplete: Need Additional Imaging Evaluation PARENCHYMAL PATTERN: (A) - The breast(s) demonstrate(s) scattered fibroglandular densities. BI-RADS CATEGORY: (0) - 0 Ultrasound [id number] Immediate follow-up LATERALITY: (B)
== END 2024-02-24 07:39 | disposition home or self-care (01) ==
LOC: DI 07:38
PROVIDERS: ATTEND Physician Assistant Medical
DX: N60.02 Solitary cyst of left breast (principal); R92.322 Mammographic fibroglandular density, left breast